=== PATIENT | female | born 2000 ===

== ENCOUNTER 2023-02-04 11:25 | Outpatient (CLI) | payer OTHER | END 2023-02-04 12:50 | disposition home or self-care (01) | LOC: PRENATAL 11:25 | PROVIDERS: ATTEND Obstetrics & Gynecology Maternal & Fetal Medicine | DX: O36.80X0 Pregnancy with inconclusive fetal viability, not applicable or unspecified (principal); Z3A.11 11 weeks gestation of pregnancy ==

== ENCOUNTER 2023-04-04 12:28 | Outpatient (CLI) | payer OTHER | END 2023-04-04 17:26 | disposition home or self-care (01) | LOC: PRENATAL 12:28 | PROVIDERS: ATTEND Obstetrics & Gynecology Maternal & Fetal Medicine | DX: O35.3XX0 Maternal care for (suspected) damage to fetus from viral disease in mother, not applicable or unspecified (principal); Z3A.20 20 weeks gestation of pregnancy ==

== ENCOUNTER 2023-06-28 15:12 | Outpatient (CLI) | payer OTHER | END 2023-06-28 15:13 | disposition home or self-care (01) | LOC: PRENATAL 15:12 | PROVIDERS: ATTEND Obstetrics & Gynecology Maternal & Fetal Medicine | DX: O26.849 Uterine size-date discrepancy, unspecified trimester (principal); O36.8199 Decreased fetal movements, unspecified trimester, other fetus; O34.219 Maternal care for unspecified type scar from previous cesarean delivery; O36.5990 Maternal care for other known or suspected poor fetal growth, unspecified trimester, not applicable or unspecified; Z3A.32 32 weeks gestation of pregnancy ==